=== PATIENT | female | born 1970 | race Two or more races ===

== ENCOUNTER 2024-02-21 10:23 | Emergency (ER) | payer OTHER ==
[~2024-02-21] VITALS: Ht 175.3 cm; Wt 63.5 kg
[2024-02-21] MEDS ORDERED: CITALOPRAM HBR20 MG (10:33)
[2024-02-21] MEDS ORDERED: PROGESTERONE200 MG (10:34)
[2024-02-21] MEDS ORDERED: MELOXICAM15 MG (10:34)
[2024-02-21] MEDS ORDERED: CLIMARA1 EAC2 (10:34)
[2024-02-21] MEDS ORDERED: 0.9 % SODIUM CHLORIDE 1,000 ML IV STA (10:44)
[2024-02-21] MEDS ORDERED: ONDANSETRON HCL 2 MG/ML VIAL IV STA (10:44)
[2024-02-21] MEDS ORDERED: FAMOTIDINE/PF 20 MG in 0.9 % SODIUM CHLORIDE 8 ML IV PUSH STA (10:45)
[2024-02-21] MEDS ORDERED: FAMOTIDINE/PF 20 MG/2 ML VIAL ONE (10:48)
[2024-02-21] MEDS ORDERED: ONDANSETRON HCL 2 MG/ML VIAL ONE (10:48)
[2024-02-21 11:26] LABS: URINE APPEARANCE Clear; URINE BILIRRUBIN Negative (NEGATIVE); URINE BLOOD Negative; URINE COLOR Yellow; URINE GLUCOSE Negative (NEGATIVE); URINE KETONE Negative (NEGATIVE); URINE LEUKOCYTE Negative; URINE NITRATE Negative; URINE PROTEIN Negative (NEGATIVE); URINE UROBILINOGEN 0.2 E.U./dl
[2024-02-21 11:31] LABS: URINE BACTERIA 1722.1 uL (0.0-1933); URINE EPITHELIAL CELLS 11.2 uL (0.0-38.8); URINE RBC 5.1 uL (0.0-20.8); URINE WBC 28.6 uL (0.0-23.2)
[2024-02-21 11:32] LABS: HEMATOCRIT 40.7 % (36.0-45.00); MEAN CELL VOLUME 91.3 fL (80.00-100.00); MEAN CORPUSCULAR HEMOGLOBIN 31.5 pg (27.00-32.0); MEAN CORPUSCULAR HGB CONC 34.5 g/dl (32.0-36.0); PLATELET COUNT 185 K/uL (150-450); RED BLOOD COUNT 4.45 M/uL (4.00-6.00); RED CELL DISTRIBUTION WIDTH 12.5 % (11.5-14.5)
[2024-02-21 11:38] LABS: URINE CAST 0.14 uL (0.0-1.40)
[2024-02-21 12:05] LABS: ALBUMIN 3.9 gm/dL (3.4-5.0); BILIRUBIN TOTAL 1.06 mg/dL (0.3-1.2); CALCIUM 9.6 mg/dL (8.5-10.1); GFR 58.22; GLOBULINA 3.2 G/DL (2.4-3.5); POTASSIUM 3.73 mEq/L (3.5-5.1); TOTAL PROTEIN 7.1 gm/dL (6.4-8.2)
[2024-02-21] MEDS ORDERED: KETOROLAC TROMETHAMINE 30 MG VIAL IV ONE (13:00)
[2024-02-21] MEDS ORDERED: KETOROLAC TROMETHAMINE 30 MG VIAL ONE (13:04)
== END 2024-02-21 14:55 | disposition home or self-care (01) ==
LOC: ER 10:26
PROVIDERS: Emergency Medicine
DX: R10.9 Unspecified abdominal pain (principal); K52.89 Other specified noninfective gastroenteritis and colitis; Z88.0 Allergy status to penicillin; Z88.2 Allergy status to sulfonamides; Z91.041 Radiographic dye allergy status

== ENCOUNTER 2024-06-09 07:27 | Outpatient (CLI) | payer OTHER ==
[~2024-06-09 07:27] MED LIST: CITALOPRAM HBR20 MG; CLIMARA1 EAC2; MELOXICAM15 MG; PROGESTERONE200 MG
== END 2024-06-09 07:28 | disposition home or self-care (01) ==
LOC: NUCLEAR 07:27
DX: R10.84 Generalized abdominal pain (principal)